=== PATIENT | female | born 1980 | race Caucasian/White ===

== ENCOUNTER 2018-08-26 14:53 | Observation (INO) | payer OTHER ==
[~2018-08-26] VITALS: Ht 172.7 cm; Wt 100.5 kg
[2018-08-26] MEDS ORDERED: IV NORMAL SALINE 1,000ML 1,000 ML IV SCH ×2 (15:03→16:45)
[2018-08-26] MEDS ORDERED: ONDANSETRON PF 4 MG/2 ML VIAL. IV ONE (15:15)
--- NOTE | 2018-08-26 15:32 | PHYS DOC ---
Past History Past Medical History: Depression, Diabetes Smoking: Non-smoker Adult General Chief Complaint Chief Complaint: nausea and vomiting and diarrhea HPI HPI Patient is a 37 year old female with history of type 1 diabetes on insulin pump brought in by family members because of nausea and vomiting and diarrhea that started today. Most history was taking from her mother because patient has nausea and unable to talk. Patient had several episodes of vomiting and watery diarrhea with complaining of right-sided abdominal pain. Patient said her blood sugar was 140. Patient did not have sick contacts at home and denies history of the same problem. Patient did not have history of recent antibiotic use. Review of Systems Review of Systems Constitutional: Denies fever or chills [] Eyes: Denies change in visual acuity, redness, or eye pain [] HENT: Denies nasal congestion or sore throat [] Respiratory: Denies cough or shortness of breath [] Cardiovascular: No additional information not addressed in HPI [] GI: Reports abdominal pain, nausea, vomiting, diarrhea [] : Denies dysuria or hematuria [] Musculoskeletal: Denies back pain or joint pain [] Integument: Denies rash or skin lesions [] Neurologic: Denies headache, focal weakness or sensory changes [] Endocrine: Denies polyuria or polydipsia [] All other systems were reviewed and found to be within normal limits, except as documented in this note. Current Medications Current Medications Current Medications Medications (Trade) Dose Ordered Sig/Giovanny Start Time Stop Time Status Last Admin Dose Admin Ondansetron HCl (Zofran) 4 mg 1X ONCE 08/26/18 15:15 08/26/18 15:27 DC 08/26/18 15:22 4 MG Sodium Chloride 1,000 ml @ 1,000 mls/hr Q1H 08/26/18 15:03 08/26/18 16:02 08/26/18 15:22 1,000 MLS/HR Allergies Allergies Allergies Coded Allergies Type Severity Reaction Last Updated Verified erythromycin base Allergy Unknown Diarrhea 08/26/18 Yes Physical Exam Physical Exam Constitutional: Well developed, well nourished, moderate distress, non-toxic appearance. [] HENT: Normocephalic, atraumatic, oropharynx dry, no oral exudates, nose normal. [] Eyes: PERRLA, EOMI, conjunctiva normal, no discharge. [] Neck: Normal range of motion, no tenderness, supple, no stridor. [] Cardiovascular:Heart rate regular rhythm, no murmur [] Lungs & Thorax: Bilateral breath sounds clear to auscultation [] Abdomen: Bowel sounds normal, soft, no tenderness, no masses, no pulsatile masses. [] Skin: Warm, dry, no erythema, no rash. [] Back: No tenderness, no CVA tenderness. [] Extremities: No tenderness, no cyanosis, no clubbing, ROM intact, no edema. [] Neurologic: Alert and oriented X 3, normal motor function, normal sensory function, no focal deficits noted. [] Current Patient Data Lab Results Laboratory Tests Test 08/26/18 15:03 Glucose (Fingerstick) 171 mg/dL (70-99) H EKG EKG [] Radiology/Procedures Radiology/Procedures [] Course & Med Decision Making Course & Med Decision Making Pertinent Labs and Imaging studies reviewed. (See chart for details) Evaluation of patient in ER showed 37-year-old female patient with type 1 diabetes and episodes of nausea and vomiting and diarrhea. Patient had actively vomiting bile material and loose stools. Patient treated with Zofran and IV fluid and rectal with partial improvement of her condition. Patient did not have sign of DKA. Dr. Osborne accepted admission at 1624. Dragon Disclaimer Dragon Disclaimer This electronic medical record was generated, in whole or in part, using a voice recognition dictation system. Departure Departure: Impression: Primary Impression: Acute gastroenteritis Additional Impressions: Dehydration Type I diabetes mellitus Disposition: 09 ADMITTED INPATIENT (at 1625) Admitting Physician: Farhana Osborne (accepted admission at 1624) Condition: IMPROVED Referrals: PCP,UNKNOWN (PCP) Problem Qualifiers DEEPA PIERCE MD Aug 26, 2018 15:32
[2018-08-26 15:37] LABS: BASO # 0.1 x10^3/uL (0.0-0.2); BASO % 1 % (0-3); EOS # 0.3 x10^3/uL (0.0-0.7); EOS % 2 % (0-3); HEMATOCRIT 41.3 % (36.0-47.0); LYMPH # 2.4 x10^3/uL (1.0-4.8); LYMPH % 20 % (24-48); MEAN CORPUSCULAR HEMOGLOBIN 29 pg (25-35); MEAN CORPUSCULAR HGB CONC 34 g/dL (31-37); MEAN CORPUSCULAR VOLUME 86 fL (79-100); MONO % 9 % (0-9); NEUT # 8.3 x10^3uL (1.8-7.7); NEUT % 69 % (31-73); PLATELET COUNT 440 x10^3/uL (140-400); RED BLOOD COUNT 4.81 x10^6/uL (3.50-5.40); RED CELL DISTRIBUTION WIDTH 13.2 % (11.5-14.5); WHITE BLOOD COUNT 12.1 x10^3/uL (4.0-11.0)
[2018-08-26 15:51] LABS: ALBUMIN 3.7 g/dL (3.4-5.0); ALBUMIN/GLOBULIN RATIO 0.9 (1.0-1.7); CALCIUM 9.4 mg/dL (8.5-10.1); GFR 62.7; POTASSIUM 4.3 mmol/L (3.5-5.1); TOTAL BILIRUBIN 0.5 mg/dL (0.2-1.0); TOTAL PROTEIN 7.7 g/dL (6.4-8.2)
[2018-08-26] MEDS ORDERED: METOCLOPRAMIDE HCL 10 MG/2 ML VIAL. IV ONE (16:15)
[2018-08-26] MEDS ORDERED: IV NORMAL SALINE 1,000ML 1,000 ML IV ONE (16:15)
[2018-08-26] MEDS ORDERED: ONDANSETRON PF 4 MG/2 ML VIAL. IV PRN (16:45)
--- NOTE | 2018-08-26 17:39 | RAD ---
Indication:NAUSEA AND VOMITING TECHNIQUE: Grayscale, color Doppler and spectral waveform is of the abdomen obtained. COMPARISON:None FINDINGS:No gallstones, pericholecystic fluid or gallbladder wall thickening. Aorta and IVC are within normal limits. Pancreas not well visualized during bowel gas. Liver measures 16 cm in longest dimension with diffusely increased echogenicity and is normal in size. Main portal vein is patent with hepatopedal flow. CBD measures 4 mm in diameter and is within normal limits. Right kidney measures 10.4 cm in length without hydronephrosis. IMPRESSION: 1. No cholelithiasis or sonographic evidence of acute cholecystitis. 2. Hepatic steatosis. Electronically signed by: Travis Barclay DO (08/26/2018 5:36 PM) [facility]
[2018-08-26 17:50] VITALS: BP 94/63
[2018-08-26] MEDS ORDERED: LACT1CAP8 PO (18:41)
[2018-08-26] MEDS ORDERED: CHOL10003 PO (18:41)
[2018-08-26] MEDS ORDERED: LEVO175T2 PO (18:41)
[2018-08-26] MEDS ORDERED: LISI-338 PO (18:41)
[2018-08-26] MEDS ORDERED: NALT50TA PO (18:41)
[2018-08-26] MEDS ORDERED: BUPR150T15 PO (18:41)
[2018-08-26] MEDS ORDERED: ATOR10TA PO (18:41)
[2018-08-26 19:38] VITALS: BP 109/66
[2018-08-26] MEDS: IV NORMAL SALINE 1,000ML 1,000 ML IV SCH (20:56)
[2018-08-26] MEDS ORDERED: ATORVASTATIN CALCIUM 10 MG TABLET. PO SCH (21:00)
[2018-08-26 21:15] LABS: BACTERIA,URINE FEW /HPF (0-FEW); BILIRUBIN,URINE NEG (NEG); CLARITY,URINE HAZY; COLOR,URINE YELLOW; GLUCOSE,URINE 500 mg/dL (NEG); NITRITE,URINE NEG (NEG); SQUAMOUS EPITHELIAL CELL,UR MANY /LPF; UROBILINOGEN,URINE 0.2 mg/dL (0.2 mg/dL); WBC,URINE OCC /HPF (0-4); YEAST,URINE PRESENT /HPF
[2018-08-26 23:40] VITALS: BP 114/70
[2018-08-27 04:33] VITALS: BP 101/66
[2018-08-27 06:25] LABS: BASO # 0.1 x10^3/uL (0.0-0.2); BASO % 1 % (0-3); EOS # 0.1 x10^3/uL (0.0-0.7); EOS % 1 % (0-3); HEMATOCRIT 35.5 % (36.0-47.0); LYMPH # 3.1 x10^3/uL (1.0-4.8); LYMPH % 25 % (24-48); MEAN CORPUSCULAR HEMOGLOBIN 29 pg (25-35); MEAN CORPUSCULAR HGB CONC 34 g/dL (31-37); MEAN CORPUSCULAR VOLUME 86 fL (79-100); MONO # 1.1 x10^3/uL (0.0-1.1); MONO % 9 % (0-9); NEUT % 65 % (31-73); PLATELET COUNT 379 x10^3/uL (140-400); RED BLOOD COUNT 4.11 x10^6/uL (3.50-5.40); RED CELL DISTRIBUTION WIDTH 13.2 % (11.5-14.5); WHITE BLOOD COUNT 12.4 x10^3/uL (4.0-11.0)
[2018-08-27 06:36] LABS: ALBUMIN 2.8 g/dL (3.4-5.0); ALBUMIN/GLOBULIN RATIO 0.8 (1.0-1.7); CREATININE 0.8 mg/dL (0.6-1.0); GFR 81.2; POTASSIUM 3.2 mmol/L (3.5-5.1); TOTAL BILIRUBIN 0.4 mg/dL (0.2-1.0); TOTAL PROTEIN 6.1 g/dL (6.4-8.2)
[2018-08-27] MEDS ORDERED: LEVOTHYROXINE 175 MCG TABLET PO SCH (07:30)
[2018-08-27] MEDS: IV NORMAL SALINE 1,000ML 1,000 ML IV SCH (07:48)
[2018-08-27] MEDS ORDERED: buPROPion XL 150 MG TAB.ER.24H PO SCH (08:00)
[2018-08-27] MEDS ORDERED: CHOLECALCIFEROL (VITAMIN D3) 1,000 UNIT TABLET PO SCH (09:00)
[2018-08-27] MEDS ORDERED: LACTOBACILLUS RHAMNOSUS GG 1 CAPSULE. PO SCH (09:00)
[2018-08-27] MEDS ORDERED: LISINOPRIL 5 MG TABLET. PO SCH (09:00)
[2018-08-27 10:41] VITALS: BP 101/65
[2018-08-27] MEDS ORDERED: NALTREXONE HCL 50 MG TABLET PO SCH ×2 (11:30)
[2018-08-27] MEDS ORDERED: POTASSIUM CHLORIDE 20 MEQ TABLET.ER. PO ONE (12:00)
--- NOTE | 2018-08-27 13:38 | SSS ---
ADMIT DATE: 08/26/2018 HISTORY OF PRESENT ILLNESS: The patient is a 37-year-old female patient who is visiting her family, who was known to have type 1 diabetes, on insulin infusion pump, was brought by her family because of recurrent bouts of nausea, vomiting and diarrhea that started yesterday morning. She apparently had several episodes of vomiting and watery diarrhea with a complaint of right-sided abdominal pain. Her blood sugar was 140 mg/dL at the time she arrived here. She did not have any sick contacts at home. Denies any history of similar problems. Denied any history of recent antibiotic use. She was extensively investigated and was admitted with diagnosis of acute gastroenteritis, dehydration, and type 1 diabetes mellitus, started on IV fluid and antiemetic as well as fentanyl for pain. PAST MEDICAL HISTORY: Significant for type 1 diabetes mellitus, insulin infusion pump; hypothyroidism; hypertension; hyperlipidemia; vitamin D deficiency; and depression. PAST SURGICAL HISTORY: 1. Significant for lysis of adhesion and left shoulder joint. 2. Tubal ligation. 3. [place] tooth extraction. ALLERGIES: SHE IS ALLERGIC TO ERYTHROMYCIN BASE. MEDICATIONS: She is currently on following medications: She is on atorvastatin calcium 10 mg at bedtime, lisinopril 5 mg once a day, naltrexone 25 mg twice a day before lunch and dinner, Wellbutrin-XL 150 mg, she takes 3 tablets daily with breakfast; lactobacillus probiotic one tablet daily; levothyroxine sodium 175 mcg once a day; cholecalciferol for vitamin D3 1000 international units once a day. FAMILY HISTORY: She is the only child. Her father is still alive at the age of 61, has type 2 diabetes. Mother is still alive at the age of 65 and is known to have Nathaniel's thyroiditis. SOCIAL HISTORY: She is single, has no children. The patient does not smoke or use drugs. She drinks occasional glass of wine. 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 REVIEW OF SYSTEMS: The patient denied any blurring of vision, cataract, glaucoma or macular degeneration. Denied any earache, tinnitus or sensorineural deafness. Denied any nosebleeds, stuffy nose or postnasal drip. Denied any sore throat, sore tongue, toothache, hoarseness of voice or difficulty swallowing and did complain of recurrent bouts of nausea, vomiting and diarrhea. Denied any hematemesis, melena or hematochezia. Denied any dysuria, frequency or hematuria. Denied any chest pain, shortness of breath, orthopnea or paroxysmal nocturnal dyspnea. PHYSICAL EXAMINATION: GENERAL: On arrival to the Emergency Room, the patient looked well; slightly tachypneic, but not jaundiced, cyanosis. No lymphadenopathy, no thyromegaly. No jugular venous distension. No limb edema. VITAL SIGNS: Her heart rate was 83, blood pressure was 98/46. Her temperature was 97.9, respiratory rate was 32 and oxygen saturation was 99% on room air. HEAD, EARS, EYES, NOSE, AND THROAT: Showed normocephalic, atraumatic. NECK: Supple. HEART: Showed normal first and second heart sounds with no gallop, rub or murmur. CHEST: Clear to auscultation. No crepitation or rhonchi. ABDOMEN: Distended, soft, nontender. NEUROLOGIC: She is awake, alert, responding appropriately. All cranial nerves intact. EXTREMITIES: She moves without difficulty. She ambulates without assistance or assistive devices on arrival. LABORATORY DATA: Showed serum sodium 136, potassium 4.3, chloride 99, bicarbonate 23, anion gap of 14, BUN 14, creatinine 1, estimated GFR was 63 mL per minute. Her glucose was 246, calcium was 9.4. Total bilirubin, AST, ALT, alkaline phosphatase were normal. Total protein 7.7, albumin 3.7 and serum lipase was 73. Her white cell count was 12,100. Her hemoglobin was 14, hematocrit 41, MCV 86, and platelet count 440,000 with normal manual differential. Her urinalysis was unremarkable. Her test was negative. She was started on IV fluid in the form of sodium chloride at 100 mL per hour. Continue with Zofran 4 mg IV every 4 hours as well as fentanyl citrate 50 mcg IV every 3 hours. She did actually very well. When I saw her this morning, she was resting slightly propped up in bed, in no apparent distress. She has had no further episodes of nausea, vomiting or diarrhea. No abdominal pain. Her diet was started as clear liquid yesterday and today has managed to eat her regular diet without any problem and therefore, a decision was made to discharge her home to continue all her home medications. When I examined her this afternoon, she looked well and was clearly in no apparent distress. Heart rate was 97, blood pressure was 101/65, temperature was 98.1, respiratory rate was 16, and oxygen saturation was 97%. The rest of clinical examination is unremarkable, has not really changed. Her chemistry showed a serum sodium 139, potassium 3.2, chloride 104, bicarbonate 26, anion gap of 9, BUN 14, creatinine 0.8, estimated GFR was 81 mL per minute. Her glucose was 61, calcium was 8. Total bilirubin, AST, ALT, alkaline phosphatase were normal. Total protein 6.1, albumin was 2.6. She was discharged home to continue on atorvastatin calcium 10 mg at bedtime; Wellbutrin 150 mg, she takes 3 tablets once a day with breakfast; cholecalciferol 1000 international units once a day; lactobacillus combination 1 one tablet p.o. daily. She is on levothyroxine 175 mcg once a day, Lipitor 5 mg at bedtime, and naltrexone 25 mg twice a day before lunch and dinner. FINAL DISCHARGE DIAGNOSES: 1. Acute gastroenteritis. 2. Type 1 diabetes mellitus, well controlled on insulin infusion pump. 3. Hypothyroidism. 4. Hypertension. 5. Hyperlipidemia. 6. Vitamin D deficiency. 7. Depression. CARLEEN MOLINA MD DR: CHIKIS/alessandra JOB#: [id number] / [id number]
== END 2018-08-27 12:10 | disposition home or self-care (01) ==
LOC: ER 14:53 → INTOOBSV 16:46 → 1 SOUTH 16:46
PROVIDERS: ADMIT Internal Medicine; ATTEND Internal Medicine
DX: K52.9 Noninfective gastroenteritis and colitis, unspecified (principal); E10.9 Type 1 diabetes mellitus without complications; E03.9 Hypothyroidism, unspecified; I10 Essential (primary) hypertension; E55.9 Vitamin D deficiency, unspecified; E78.5 Hyperlipidemia, unspecified; F32.9 Major depressive disorder, single episode, unspecified; Z96.41 Presence of insulin pump (external) (internal); Z83.3 Family history of diabetes mellitus; Z98.51 Tubal ligation status; Z88.8 Allergy status to other drugs, medicaments and biological substances; Z79.899 Other long term (current) drug therapy
CPT/HCPCS: 36415; 76705; 80053; 81001; 82947; 83690; 84702; 85025; 96361; 96374; 96375; 99284; G0378; J2405; J2765; J3010; G0379; J7030